=== PATIENT | female | born 1990 | race Caucasian/White ===

== ENCOUNTER → 2017-06-21 | Outpatient (CLI) | payer SELFPAY ==
--- NOTE | 2017-06-21 17:07 | RADIOLOGY REPORT (SQ) ---
EXAM DESCRIPTION: U/S [id number] TRNABD 1GES W/ODOP COMPLETED DATE/TIME: 06/21/2017 4:41 pm REASON FOR STUDY: ENCOUNTER FOR SUPERVISION OF OTHER NORMAL , FIRST TRIMESTER Z34.81 ENCOU NTER FOR SUPRVSN OF NORMAL , FIRST TRIM COMPARISON: None. TECHNIQUE: Transabdominal static and realtime grayscale images acquired of the pelvis. Additional se lected spectral and color Doppler images recorded. All images stored on PACs. bHCG: Not applicable. LIMITATIONS: None. FINDINGS: FETUS: EGA: 13 week 4 day. WILLIAM: 12/23/2017. EFW: Not applicable. FHR: 153 beats per minute. EBONI: Adequate amount. CERVICAL LENGTH: 3.5 cm. Closed. UTERUS: No masses. RIGHT ADNEXA: Ovary not identified. No adnexal free fluid. No adnexal masses. LEFT ADNEXA: Ovary not identified. No adnexal free fluid. No adnexal masses. FREE FLUID: None. OTHER: No other significant finding. IMPRESSION: LIVING INTRAUTERINE . ESTIMATED GESTATIONAL AGE:13 WEEK 4 DAY. Trimester of : Second trimester - 13 weeks 1 day to 27 weeks 6 days. TECHNICAL DOCUMENTATION: JOB ID: [id number] [employer]- All Rights Reserved
== END ==
LOC: RAD 15:41
PROVIDERS: ATTEND Nurse Practitioner Women's Health
DX: Z34.82 Encounter for supervision of other normal pregnancy, second trimester (principal)
CPT/HCPCS: 76801

== ENCOUNTER 2017-06-25 16:46 | Emergency (ER) | payer SELFPAY ==
[2017-06-25 16:55] VITALS: BP 139/72
== END 2017-06-25 20:54 | disposition left against medical advice (07) ==
LOC: ER 16:46
DX: Z53.21 Procedure and treatment not carried out due to patient leaving prior to being seen by health care provider (principal)

== ENCOUNTER 2018-05-24 13:54 | Emergency (ER) | payer MEDICAID ==
[2018-05-24 15:25] LABS: AMORPHOUS SEDIMENT,URINE TRACE /HPF; APPEARANCE,URINE SLIGHTLY-CLOUDY; BILIRUBIN,URINE NEGATIVE (NEGATIVE); COLOR,URINE YELLOW; GLUCOSE, URINE NEGATIVE (NEGATIVE); KETONES,URINE NEGATIVE (NEGATIVE); LEUKOCYTE ESTERASE,URINE NEGATIVE (NEGATIVE); NITRITE,URINE NEGATIVE (NEGATIVE); PROTEIN,URINE NEGATIVE (NEGATIVE); URINE SPECIFIC GRAVITY 1.013; UROBILINOGEN,URINE NEGATIVE mg/dL (<2.0)
[2018-05-24] MEDS ORDERED: NORMAL SALINE 1000 ML 1,000 ML IV ONE (15:41)
[2018-05-24] MEDS ORDERED: KETOROLAC TROMETHAMINE INJ/PF 30 MG/1 ML SDV IV ONE (15:42)
[2018-05-24] MEDS ORDERED: ONDANSETRON HCL INJ/PF 4 MG/2 ML SDV IV ONE (15:42)
--- NOTE | 2018-05-24 15:42 | ER Document Report ---
ED General - General Chief Complaint: Abdominal Pain Stated Complaint: FLANK PAIN Time Seen by Provider: 05/24/18 15:23 Notes: Patient is a 27-year-old female with history of kidney stones and gallstones that presents to the emergency department for chief complaint of abdominal pain and flank pain. Patient states that the symptoms started over the last few days, and singly getting worse. Initially started in the right back, and then came to the right upper quadrant of her abdomen. She is had associated nausea without vomiting. Denies having any fevers, chills, night sweats, chest pain, shortness of breath or difficulty breathing. She currently rates her pain as a 5 out of 10, describes as an aching sensation, in the right upper quadrant that wraps towards the right flank. Denies any other complaints at this time. Past Medical History: Kidney stones Past Surgical History: Denies surgical history Social History: Denies tobacco, alcohol or drug use. Family History: Reviewed and noncontributory for presenting illness Allergies: Reviewed, see documented allergy list. REVIEW OF SYSTEMS: Other than noted above, the 12 point review of systems was reviewed with the patient and were negative, all pertinent findings are included in the HPI. PHYSICAL EXAMINATION: Vital signs reviewed, nursing noted reviewed. GENERAL: Well-appearing, well-nourished and in no acute distress. HEAD: Atraumatic, normocephalic. EYES: Eyes appear normal, extraocular movements intact, sclera anicteric, conjunctiva are normal. ENT: nares patent, oropharynx clear without exudates. Moist mucous membranes. NECK: Normal range of motion, supple without lymphadenopathy LUNGS: Breath sounds clear to auscultation bilaterally and equal. No wheezes rales or rhonchi. HEART: Regular rate and rhythm without murmurs ABDOMEN: Soft, mild right upper quadrant and right flank tenderness with palpation, normoactive bowel sounds. No rebound, guarding, or rigidity. No masses appreciated. EXTREMITIES: Nontender, good range of motion, no pitting or edema. NEUROLOGICAL: No focal neurological deficits. Moves all extremities spontaneously Motor and sensory grossly intact on exam. PSYCH: Normal mood, normal affect. SKIN: Warm, Dry, normal turgor, no rashes or lesions noted on exposed skin TRAVEL OUTSIDE OF THE [place] IN LAST 30 DAYS: No - Related Data Allergies/Adverse Reactions: Iodinated Contrast- Oral and IV Dye Allergy (Verified 12/29/18 14:05) Past Medical History - Social History Smoking Status: Never Smoker Family History: Reviewed & Not Pertinent Patient has suicidal ideation: No Patient has homicidal ideation: No Renal/ Medical History: Reports: Hx Kidney Stones. Denies: Hx Peritoneal Dialysis Musculoskeletal Medical History: Reports Hx Musculoskeletal Trauma Psychiatric Medical History: Reports: Hx Anxiety - Immunizations Immunizations up to date: Yes Hx Diphtheria, Pertussis, Tetanus Vaccination: Yes Physical Exam - Vital signs Vitals: Temp Pulse Resp BP Pulse Ox 98.9 F 61 16 114/57 L 99 05/24/18 14:23 05/24/18 14:23 05/24/18 14:23 05/24/18 14:23 05/24/18 14:23 Course - Re-evaluation Re-evalutation: Patient seen and examined vital signs reviewed. Laboratory data and imaging were ordered as appropriate for the patient's presenting symptoms and complaint, with consideration of any critical or life threatening conditions that may be associated with their obtained history and exam as noted above. Patient was treated with IV fluids, Toradol and Zofran Results were reviewed when available and demonstrated hematuria on urinalysis, but blood work was otherwise unremarkable, CT imaging of the abdomen demonstrate that nonobstructing renal stones, no gallstones, or evidence of cholecystitis. The patient was re-evaluated and was improved, still having some mild pain but stable Evaluation was most consistent with renal versus biliary colic, advised follow- up with surgery., Provided prescriptions for [place], and Zofran. Results were discussed with the patient at this point, after careful consideration I feel that that patient can be discharged from the emergency department, the patient was educated treatments and reasons to return to the emergency department based on their presumed diagnosis as noted above, they were advised to followup with a primary care physician in 2-3 days. Patient was agreeable to plan of care. *Note is created using voice recognition software and may contain spelling, syntax or grammatical errors. Laboratory 05/24/18 05/24/18 05/24/18 14:30 16:18 16:18 WBC 6.1 RBC 4.62 Hgb 12.3 Hct 37.7 MCV 82 MCH 26.6 L MCHC 32.6 RDW 16.1 H Plt Count 291 Seg Neutrophils % 66.3 Lymphocytes % 24.5 Monocytes % 7.4 Eosinophils % 1.4 Basophils % 0.4 Absolute Neutrophils 4.0 Absolute Lymphocytes 1.5 Absolute Monocytes 0.5 Absolute Eosinophils 0.1 Absolute Basophils 0.0 Sodium 142.0 Potassium 5.0 Chloride 107 Carbon Dioxide 27 Anion Gap 8 BUN 13 Creatinine 0.73 Est GFR ( Amer) > 60 Est GFR (Non-Af Amer) > 60 Glucose 82 Calcium 10.1 Total Bilirubin 0.3 Direct Bilirubin 0.2 Neonat Total Bilirubin Not Reportable Neonat Direct Bilirubin Not Reportable Neonat Indirect Bili Not Reportable AST 35 ALT 60 H Alkaline Phosphatase 107 Total Protein 7.0 Albumin 4.1 Lipase 122.9 Urine Color YELLOW Urine Appearance SLIGHTLY-CLOUDY Urine pH 7.0 Ur Specific [place] 1.013 Urine Protein NEGATIVE Urine Glucose (UA) NEGATIVE Urine Ketones NEGATIVE Urine Blood MODERATE H Urine Nitrite NEGATIVE Urine Bilirubin NEGATIVE Urine Urobilinogen NEGATIVE Ur Leukocyte Esterase NEGATIVE Urine WBC (Auto) 1 Urine RBC (Auto) 2 Squamous Epi Cells Auto 1 Amorphous Sediment Auto TRACE Urine Mucus (Auto) RARE Urine Ascorbic Acid NEGATIVE Urine HCG, Qual NEGATIVE Limited or Localized CT 05/24/18 15:41 IMPRESSION: 1. Minimal nonobstructive right nephrolithiasis. 2. No acute abdominopelvic abnormality. 05/24/18 17:36 - Vital Signs Vital signs: Temp Pulse Resp BP Pulse Ox 98.9 F 60 16 113/68 100 05/24/18 14:23 05/24/18 17:28 05/24/18 17:28 05/24/18 17:28 05/24/18 17:28 - Laboratory Result Diagrams: 05/24/18 16:18 05/24/18 16:18 Laboratory results interpreted by me: 05/24/18 05/24/18 05/24/18 14:30 16:18 16:18 MCH 26.6 L RDW 16.1 H ALT 60 H Urine Blood MODERATE H Discharge - Discharge Clinical Impression: Biliary colic Abdominal pain Qualifiers: Abdominal location: unspecified location Qualified Code(s): R10.9 - Unspecified abdominal pain Condition: Stable Disposition: HOME, SELF-CARE Instructions: Abdominal Pain ([facility]) Additional Instructions: Please return to the emergency department if you have any worsening, or concern of your symptoms. Please return to the emergency department if you develop chest pain, difficulty breathing, severe abdominal pain, or ongoing vomiting. Please follow-up with your primary care physician in 2-3 days and any other recommended physicians. If prescribed, take all medications as directed. If you have any questions or concerns do not hesitate to return the emergency department for evaluation. Please follow-up with the surgeon provided, as you may need further evaluation, possible HIDA scan, for biliary colic. Your blood work today did not reveal evidence of acute gallbladder infection, but sometimes people need her gallbladder taken out before it becomes that bad. Prescriptions: Hydrocodone/Acetaminophen [[place] 5-325 mg Tablet] 1 tab PO Q8H PRN #12 tablet PRN Reason: abdominal pain Ondansetron [Zofran Odt 4 mg Tablet] 1 tab PO Q8H PRN #15 tab.rapdis PRN Reason: For Nausea/Vomiting Forms: Return to Work Referrals: BEE RIVERS MD [ACTIVE STAFF] - Follow up in 3-5 days
[2018-05-24 16:41] LABS: ABSOLUTE EOSINOPHILS # (AUTO) 0.1 10^3/uL (0.0-0.6); ABSOLUTE LYMPHOCYTES (AUTO) 1.5 10^3/uL (0.5-4.7); ABSOLUTE MONOCYTES (AUTO) 0.5 10^3/uL (0.1-1.4); BASOPHILS % (AUTO) 0.4 % (0-2); EOSINOPHILS % (AUTO) 1.4 % (0-6); HEMATOCRIT 37.7 % (36.0-47.0); HEMOGLOBIN 12.3 g/dL (12.0-15.5); LYMPHOCYTES % (AUTO) 24.5 % (13-45); MEAN CORPUSCULAR HEMOGLOBIN 26.6 pg (27.0-33.4); MEAN CORPUSCULAR HGB CONC 32.6 g/dL (32.0-36.0); MEAN CORPUSCULAR VOLUME 82 fl (80-97); MONOCYTES % (AUTO) 7.4 % (3-13); PLATELET COUNT 291 10^3/uL (150-450); RED BLOOD COUNT 4.62 10^6/uL (3.72-5.28); RED CELL DISTRIBUTION WIDTH 16.1 % (11.5-14.0); SEGMENTED NEUTROPHILS % (AUTO) 66.3 % (42-78); TOTAL CELLS COUNTED % (AUTO) 100 %; WHITE BLOOD COUNT 6.1 10^3/uL (4.0-10.5)
--- NOTE | 2018-05-24 16:47 | RADIOLOGY REPORT (SQ) ---
EXAM DESCRIPTION: CT LTD RENAL STONE PROTOCOL ON COMPLETED DATE/TIME: 05/24/2018 4:35 pm REASON FOR STUDY: right flank pain, hx kidney stones COMPARISON: None. TECHNIQUE: CT scan of the abdomen and pelvis performed without intravenous or oral contrast. Images reviewed with lung, soft tissue, and bone windows. Reconstructed coronal and sagittal MPR images revi ewed. All images stored on PACS. All CT scanners at this facility use dose modulation, iterative reconstruction, and/or weight based d osing when appropriate to reduce radiation dose to as low as reasonably achievable (ALARA). [facility]: Dose Right [facility]: CareDose [facility]: Dose Right [facility]: Teradose 4D [facility]: Smart Mixwit RADIATION DOSE: CT Rad equipment meets quality standard of care and radiation dose reduction techniq ues were employed. CTDIvol: 9.1 mGy. DLP: 491 mGy-cm.mGy. LIMITATIONS: None. FINDINGS: LOWER CHEST: No significant findings. No nodules or infiltrates. NON-CONTRASTED LIVER, SPLEEN, ADRENALS: Evaluation limited by lack of IV contrast. No identified sign ificant masses. PANCREAS: No masses. No peripancreatic inflammatory changes. GALLBLADDER: Contracted. Probable gallstones. No duct dilatation. RIGHT KIDNEY AND URETER: Punctate nonobstructive midpole calculus. No hydronephrosis. No ureteral s tones. No gross mass. LEFT KIDNEY AND URETER: No solid masses. No significant calcification. No hydronephrosis or hydrouret er. AORTA AND RETROPERITONEUM: No aneurysm. No retroperitoneal masses or adenopathy. BOWEL AND PERITONEAL CAVITY: No obvious masses or inflammatory changes. No free fluid. APPENDIX: Normal. PELVIS, BLADDER, AND ABDOMINAL WALL:No abnormal masses. No free fluid. Bladder normal. BONES: No significant findings. OTHER: No other significant finding. IMPRESSION: 1. Minimal nonobstructive right nephrolithiasis. 2. No acute abdominopelvic abnormalit y. TECHNICAL DOCUMENTATION: JOB ID: [id number] Quality ID # [id number]: Final reports with documentation of one or more dose reduction techniques (e.g., Au tomated exposure control, adjustment of the mA and/or kV according to patient size, use of iterative reconstruction technique) 2010 [employer]- All Rights Reserved Reading location - IP/workstation name: [email or web address]
[2018-05-24 16:58] LABS: ALANINE AMINOTRANSFERASE 60 U/L (9-52); ALBUMIN 4.1 g/dL (3.5-5.0); ALKALINE PHOSPHATASE 107 U/L (38-126); ANION GAP 8 (5-19); ASPARTATE AMINO TRANSFERASE 35 U/L (14-36); BILIRUBIN,DIRECT 0.2 mg/dL (0.0-0.4); BILIRUBIN,TOTAL 0.3 mg/dL (0.2-1.3); BLOOD UREA NITROGEN 13 mg/dL (7-20); CALCIUM 10.1 mg/dL (8.4-10.2); CARBON DIOXIDE 27 mmol/L (22-30); CHLORIDE 107 mmol/L (98-107); GLUCOSE 82 mg/dL (75-110); LIPASE 122.9 U/L (23-300)
[2018-05-24 17:28] VITALS: BP 113/68
== END 2018-05-24 17:34 | disposition home or self-care (01) ==
LOC: ER 13:54
DX: K80.50 Calculus of bile duct without cholangitis or cholecystitis without obstruction (principal); R10.9 Unspecified abdominal pain; R10.11 Right upper quadrant pain; R11.0 Nausea
CPT/HCPCS: 99284; 96361; 96374; 96375; 36415; 83690; 85025; 81025; 80053; 81001; 76380; J1885; J2405; J7030

== ENCOUNTER 2019-01-18 19:34 | Emergency (ER) | payer MEDICAID ==
[2019-01-18] MEDS ORDERED: NORMAL SALINE 1000 ML 1,000 ML IV ONE (20:17)
[2019-01-18] MEDS ORDERED: MAGNESIUM CITRATE 296 ML BOTTLE PO ONE (20:20)
[2019-01-18] MEDS ORDERED: ONDANSETRON HCL INJ/PF 4 MG/2 ML SDV IV ONE (20:20)
--- NOTE | 2019-01-18 20:22 | ER Document Report ---
ED Medical Screen (RME) - General Chief Complaint: Chest Pain Stated Complaint: CONSTIPATION,CHEST PAIN Time Seen by Provider: 01/18/19 20:11 Mode of Arrival: Ambulatory Information source: Patient Notes: 28-year-old female presented to ED for complaint of severe abdominal pain and no bowel movement in 9 days. She states she stopped her vitamins because she is 7 weeks . She states she has a history of Crohn's and she is worried that she has an obstruction. She is 4 para 2. I did go and speak with Dr. Shaikh. She stated to give the patient Zofran get a KUB to find out how constipated she is give her fluids and we will give next citrate. These were all ordered. Patient is alert oriented respirations regular and unlabored speaking in full sentences she does walk with even steady gait. I have greeted and performed a rapid initial assessment of this patient. A comprehensive ED assessment and evaluation of the patient, analysis of test results and completion of medical decision making process will be conducted by an additional ED providers. TRAVEL OUTSIDE OF THE [place] IN LAST 30 DAYS: No - Related Data Allergies/Adverse Reactions: Iodinated Contrast Media [Iodinated Contrast- Oral and IV Dye] Allergy (Verified 05/24/18 14:05) Past Medical History - Social History Frequency of alcohol use: None Drug Abuse: None Renal/ Medical History: Reports: Hx Kidney Stones. Denies: Hx Peritoneal Dialysis Musculoskeltal Medical History: Reports Hx Musculoskeletal Trauma Psychiatric Medical History: Reports: Hx Anxiety - Immunizations Immunizations up to date: Yes Hx Diphtheria, Pertussis, Tetanus Vaccination: Yes Physical Exam - Vital signs Vitals: Temp Pulse Resp BP Pulse Ox 98.1 F 79 18 131/70 H 100 01/18/19 19:54 01/18/19 19:54 01/18/19 19:54 01/18/19 19:54 01/18/19 19:54 Course - Vital Signs Vital signs: Temp Pulse Resp BP Pulse Ox 98.1 F 79 18 131/70 H 100 01/18/19 19:54 01/18/19 19:54 01/18/19 19:54 01/18/19 19:54 01/18/19 19:54
[2019-01-18 20:35] LABS: ABSOLUTE LYMPHOCYTES (AUTO) 1.6 10^3/uL (0.5-4.7); ABSOLUTE MONOCYTES (AUTO) 0.5 10^3/uL (0.1-1.4); ABSOLUTE NEUT (AUTO) 4.9 10^3/uL (1.7-8.2); BASOPHILS % (AUTO) 0.4 % (0-2); EOSINOPHILS % (AUTO) 0.7 % (0-6); HEMATOCRIT 36.2 % (36.0-47.0); LYMPHOCYTES % (AUTO) 22.5 % (13-45); MEAN CORPUSCULAR HEMOGLOBIN 28.1 pg (27.0-33.4); MEAN CORPUSCULAR HGB CONC 33.2 g/dL (32.0-36.0); MEAN CORPUSCULAR VOLUME 85 fl (80-97); MONOCYTES % (AUTO) 6.8 % (3-13); PLATELET COUNT 216 10^3/uL (150-450); RED BLOOD COUNT 4.28 10^6/uL (3.72-5.28); RED CELL DISTRIBUTION WIDTH 16.5 % (11.5-14.0); SEGMENTED NEUTROPHILS % (AUTO) 69.6 % (42-78); TOTAL CELLS COUNTED % (AUTO) 100 %; WHITE BLOOD COUNT 7.1 10^3/uL (4.0-10.5)
[2019-01-18 21:01] LABS: ALBUMIN 3.9 g/dL (3.5-5.0); ALKALINE PHOSPHATASE 65 U/L (38-126); ANION GAP 7 (5-19); ASPARTATE AMINO TRANSFERASE 38 U/L (14-36); BILIRUBIN,DIRECT 0.3 mg/dL (0.0-0.4); BILIRUBIN,TOTAL 0.3 mg/dL (0.2-1.3); BLOOD UREA NITROGEN 8 mg/dL (7-20); CALCIUM 10.4 mg/dL (8.4-10.2); CARBON DIOXIDE 24 mmol/L (22-30); CHLORIDE 107 mmol/L (98-107); GLUCOSE 83 mg/dL (75-110); POTASSIUM 3.9 mmol/L (3.6-5.0); TOTAL PROTEIN 6.7 g/dL (6.3-8.2)
--- NOTE | 2019-01-18 21:21 | RADIOLOGY REPORT (SQ) ---
EXAM DESCRIPTION: XR ABDOMEN 1 VIEW (KUB) COMPLETED DATE/TME: 01/18/2019 20:20 CLINICAL HISTORY: 28 years Female ,no stool 9 days 7 weeks preg hx of Crohn's COMPARISON: None. TECHNIQUE: Single view of the abdomen was provided.. FINDINGS:Upper abdomen incompletely included on the image. No dilated loops of bowel to suggest obstruction. No abnormal calcifications noted. Moderate amount of fecal material in the colon. IMPRESSION: No acute plain film abnormality is identified.
[2019-01-18 21:27] LABS: APPEARANCE,URINE SLIGHTLY-CLOUDY; BILIRUBIN,URINE NEGATIVE (NEGATIVE); COLOR,URINE YELLOW; GLUCOSE, URINE NEGATIVE (NEGATIVE); KETONES,URINE NEGATIVE (NEGATIVE); LEUKOCYTE ESTERASE,URINE NEGATIVE (NEGATIVE); NITRITE,URINE NEGATIVE (NEGATIVE); PROTEIN,URINE NEGATIVE (NEGATIVE); URINE SPECIFIC GRAVITY 1.021; UROBILINOGEN,URINE NEGATIVE mg/dL (<2.0)
--- NOTE | 2019-01-18 22:37 | ER Document Report ---
ED General - General Chief Complaint: Chest Pain Stated Complaint: CONSTIPATION,CHEST PAIN Time Seen by Provider: 01/18/19 20:11 Primary Care Provider: PARVEEN BUCHANAN PA-C [Primary Care Provider] - Follow up as needed Mode of Arrival: Ambulatory Notes: Patient is a 28-year-old female with a history of Crohn's who presents to the emergency department with a chief complaint of lower abdominal pain. Patient reports she has not had a bowel movement in the past week. Patient reports she does have a history of constipation. Patient states she has not taken anything at home for constipation. Patient reports she is 7 weeks but currently not having any vaginal bleeding or discharge. Patient reports she is also having chest pressure without chest pain or shortness of breath. Patient reports that she feels like the pressure from her abdomen is pushing up to the upper abdomen and chest. She is unsure if this is related. Patient reports this started 4 days ago. Patient denies any cardiac history. Patient states she has not been on any long car rides and does not have a history of blood clots. TRAVEL OUTSIDE OF THE [place] IN LAST 30 DAYS: No - Related Data Allergies/Adverse Reactions: Iodinated Contrast Media [Iodinated Contrast- Oral and IV Dye] Allergy (Verified 05/24/18 14:05) Past Medical History - General Information source: Patient - Social History Smoking Status: Never Smoker Frequency of alcohol use: None Drug Abuse: None Lives with: Family Family History: Reviewed & Not Pertinent Patient has suicidal ideation: No Patient has homicidal ideation: No - Past Medical History Cardiac Medical History: Reports: None Pulmonary Medical History: Reports: None EENT Medical History: Reports: None Neurological Medical History: Reports: None Endocrine Medical History: Reports: None Renal/ Medical History: Reports: Hx Kidney Stones. Denies: Hx Peritoneal Dialysis Malignancy Medical History: Reports: None GI Medical History: Reports: None Musculoskeletal Medical History: Reports Hx Musculoskeletal Trauma Skin Medical History: Reports None Psychiatric Medical History: Reports: Hx Anxiety Traumatic Medical History: Reports: None Infectious Medical History: Reports: None Surgical Hx: Negative - Immunizations Immunizations up to date: Yes Hx Diphtheria, Pertussis, Tetanus Vaccination: Yes Review of Systems - Review of Systems Constitutional: No symptoms reported EENT: No symptoms reported Cardiovascular: See HPI Respiratory: No symptoms reported Gastrointestinal: See HPI Genitourinary: No symptoms reported Female Genitourinary: No symptoms reported Musculoskeletal: No symptoms reported Skin: No symptoms reported Hematologic/Lymphatic: No symptoms reported Neurological/Psychological: No symptoms reported Physical Exam - Vital signs Vitals: Temp Pulse Resp BP Pulse Ox 98.1 F 79 18 131/70 H 100 01/18/19 19:54 01/18/19 19:54 01/18/19 19:54 01/18/19 19:54 01/18/19 19:54 Interpretation: Normal - Notes Notes: GENERAL: Well-appearing, well-nourished and in no acute distress. HEAD: Atraumatic, normocephalic. EYES: Pupils equal round and reactive to light, extraocular movements intact, sclera anicteric, conjunctiva are normal. ENT: Nares patent, oropharynx clear without exudates. Moist mucous membranes. NECK: Normal range of motion, supple without lymphadenopathy or JVD. LUNGS: Breath sounds clear to auscultation bilaterally and equal. No wheezes rales or rhonchi. HEART: Regular rate and rhythm without murmurs, rubs or gallops. ABDOMEN: Soft, nontender, hypoactive bowel sounds. No guarding, no rebound. No masses appreciated. BACK: No cervical, thoracic, lumbar midline tenderness. No saddle anesthesia, normal distal neurovascular exam. GENITOURINARY: Deferred. EXTREMITIES: Normal range of motion, no pitting or edema. No clubbing or cyanosis. NEUROLOGICAL: Cranial nerves II through XII grossly intact. Normal speech, normal gait. PSYCH: Normal mood, normal affect. SKIN: Warm, Dry, normal turgor, no rashes or lesions noted. Course - Re-evaluation Re-evalutation: 01/18/19 22:35 Patient's physical assessment is benign. Patient is not tachycardic or hypertensive. My suspicion for blood clot is low, patient is PERC negative. I do believe the patient's symptoms are related to her constipation and feeling of fullness. Patient did have a moderate amount of stool in the colon. Patient did finish 1 bottle of mag citrate 30 minutes ago and states she has not had any relief. Patient denies acid reflux or recent belching. I have added on a troponin. I did offer the patient a enema. Patient states she would like to wait at this time to see if she has any results from the mag citrate. 01/18/19 23:19 Troponin is still pending. I did reevaluate the patient who complains of continued lower abdominal pain specifically in the left lower quadrant. This is consistent with her x-ray as it did show moderate amount of stool in the colon. Patient states she has not had any relief or results from the mag citrate. Patient reports she is belching but has not passed gas or had a bowel movement. I did offer an enema. Patient states she would like to start out with a glycerin suppository first. 23:21 Troponin is negative. We will continue with a glycerin suppository. 01/19/19 00:34 Patient did self administer her own glycerin suppository. Patient states she continues to have the left lower quadrant pain and feels the stool but has had no relief of gas. I did offer the patient an enema while she is here in the emergency department. Patient states that she would feel more comfortable in her own home. I will prescribe her a fleets enema. Patient reports she has taken this at home In the past. Patient placed on strict return precautions. - Vital Signs Vital signs: Temp Pulse Resp BP Pulse Ox 98.1 F 79 18 131/70 H 100 01/18/19 19:54 01/18/19 19:54 01/18/19 19:54 01/18/19 19:54 01/18/19 19:54 - Laboratory Result Diagrams: 01/18/19 20:25 01/18/19 20:25 Laboratory results interpreted by me: 01/18/19 01/18/19 20:25 20:25 RDW 16.5 H Calcium 10.4 H AST 38 H Beta HCG, Quant 410646.00 H 01/18/19 22:37 Laboratory 01/18/19 01/18/19 01/18/19 20:25 20:25 21:15 WBC 7.1 RBC 4.28 Hgb 12.0 Hct 36.2 MCV 85 MCH 28.1 MCHC 33.2 RDW 16.5 H Plt Count 216 Lymph % (Auto) 22.5 [place] % (Auto) 6.8 Eos % (Auto) 0.7 Baso % (Auto) 0.4 Absolute Neuts (auto) 4.9 Absolute Lymphs (auto) 1.6 Absolute Monos (auto) 0.5 Absolute Eos (auto) 0.0 Absolute Basos (auto) 0.0 Seg Neutrophils % 69.6 Sodium 138.1 Potassium 3.9 Chloride 107 Carbon Dioxide 24 Anion Gap 7 BUN 8 Creatinine 0.63 Est GFR ( Amer) > 60 Est GFR (MDRD) Non-Af > 60 Glucose 83 Calcium 10.4 H Total Bilirubin 0.3 Direct Bilirubin 0.3 Neonat Total Bilirubin Not Reportable Neonat Direct Bilirubin Not Reportable Neonat Indirect Bili Not Reportable AST 38 H ALT 23 Alkaline Phosphatase 65 Total Protein 6.7 Albumin 3.9 Lipase 85.5 Beta HCG, Quant 727478.00 H Total Beta HCG POSITIVE Urine Color YELLOW Urine Appearance SLIGHTLY-CLOUDY Urine pH 6.0 Ur Specific [place] 1.021 Urine Protein NEGATIVE Urine Glucose (UA) NEGATIVE Urine Ketones NEGATIVE Urine Blood NEGATIVE Urine Nitrite NEGATIVE Urine Bilirubin NEGATIVE Urine Urobilinogen NEGATIVE Ur Leukocyte Esterase NEGATIVE Urine WBC (Auto) 3 Urine RBC (Auto) 1 Squamous Epi Cells Auto 4 Urine Mucus (Auto) RARE Urine Ascorbic Acid NEGATIVE - Diagnostic Test Radiology reviewed: Reports reviewed Radiology results interpreted by me: 01/18/19 22:32 KUB X-Ray 01/18/19 20:20 IMPRESSION: No acute plain film abnormality is identified. - EKG Interpretation by Me Additional EKG results interpreted by me: 01/19/19 00:16 Patient's EKG shows a normal sinus rhythm with a heart rate of 79. Patient's [place] interval is 152, QT 360 and QTc is 422. Patient has a normal axis deviation with no ST segment changes in consecutive leads. There is no previous EKG to compare. Discharge - Discharge Clinical Impression: Constipation Qualifiers: Constipation type: unspecified constipation type Qualified Code(s): K59.00 - Constipation, unspecified Abdominal pain Qualifiers: Abdominal location: generalized Qualified Code(s): R10.84 - Generalized abdominal pain Chest pain Qualifiers: Chest pain type: unspecified Qualified Code(s): R07.9 - Chest pain, unspecified Condition: Stable Disposition: HOME, SELF-CARE Additional Instructions: Today you are seen in the emergency department for abdominal pain. Your cardiac work-up was negative. I do believe your symptoms are associated with the constipation. You did have a moderate amount of stool in the colon. We have attempted to give you a glycerin suppository as well as mag citrate without relief. An enema was offered to you here the report that you would feel much more comfortable at home. Please take the fleets enema as directed. If you are taking a vitamin with iron please stop as iron can cause constipation. Please continue adequately hydrating herself with oral liquids. Medications that are [id number] for constipation include Metamucil and MiraLAX that are taken with at least 8 ounces of water as well as milk of magnesia. Please increase fluid, fiber and fresh fruit intake. Please return to the emergency department if you have any worsening signs or symptoms or if you are unable to have a bowel movement. Abdominal Pain There are many causes of abdominal pain. Pain can mean a serious problem requiring surgery (such as appendicitis). It can also be an innocent problem that goes away on its own (such as a viral infection). Often, time must pass to determine the cause of pain. The physician does not feel that hospitalization is necessary, at present. Things may change within the next 24 hours. Call the doctor or come back for re- examination if any problems occur, such as: (1) Pain that becomes more severe, steady, or becomes concentrated in one specific area. Also, pain that is more severe with movement or coughing. (2) Vomiting that persists or becomes more frequent. (3) Blood in the vomitus, urine, or bowel movements. Blood in the stool may have a tarry or black appearance. (4) Shaking chills or fever greater than 100 degrees F. (5) The abdomen becomes more distended or swollen. (6) Bowel movements cease. (7) Failure to improve as expected. Forms: Return to Work Referrals: PARVEEN BUCHANAN PA-C [Primary Care Provider] - Follow up as needed
[2019-01-18] MEDS ORDERED: GLYCERIN (ADULT) SUPP.RECT PR ONE ×2 (23:19→23:37)
--- NOTE | 2019-01-19 00:17 | EKG REPORT ---
SEVERITY:- NORMAL ECG - SINUS RHYTHM : Confirmed by: Mile Winn MD 19-Jan-2019 00:15:53
[2019-01-19] MEDS ORDERED: NA PHOS,M-B/NA PHOS,DI-BA (ADULT) 133 ML ENEMA PR ONE (00:40)
[2019-01-19 00:52] VITALS: BP 111/57
== END 2019-01-19 00:52 | disposition home or self-care (01) ==
LOC: ER 19:34
DX: O26.91 Pregnancy related conditions, unspecified, first trimester (principal); K59.00 Constipation, unspecified; R10.84 Generalized abdominal pain; R07.9 Chest pain, unspecified; Z87.442 Personal history of urinary calculi
CPT/HCPCS: 93005; 99284; 96361; 96374; 36415; 84702; 83690; 85025; 80053; 81001; 84484; 74018; 93010; J3490 ×3; J2405; J7030

== ENCOUNTER 2019-02-20 16:48 | Emergency (ER) | payer MEDICAID ==
[2019-02-20 16:57] VITALS: BP 136/82
[2019-02-20] MEDS ORDERED: NORMAL SALINE 1000 ML 1,000 ML IV ONE (17:55)
[2019-02-20] MEDS ORDERED: ONDANSETRON HCL INJ/PF 4 MG/2 ML SDV IV ONE (17:56)
--- NOTE | 2019-02-20 18:10 | ER Document Report ---
ED Medical Screen (RME) - General Chief Complaint: Sore Throat Stated Complaint: SORE THROAT Time Seen by Provider: 02/20/19 17:48 Primary Care Provider: PARVEEN BUCHANAN PA-C [Primary Care Provider] - Follow up as needed Notes: HPI: 28-year-old female with the listed past medical history who is and approximately 12 weeks 4 days here for a several episodes of nonbloody nonbilious vomiting and several episodes of mucousy diarrhea for the last 2 days. Positive sick contacts at work with URI symptoms. She has also had a sore throat, cough, and some shortness of breath only when she gets in a coughi ng spell. Denies fevers or chest pain. No abdominal pain, vaginal bleeding or discharge. No UTI symptoms. She has had a confirmed IUP. She follows with the health department. She has not taken anything other than vitamins and Tylenol for her symptoms. She had no prior complications with her previous pregnancies. No recent antibiotics. No changes in medication or diet otherwise. No other complaints at this time. ROS neg to include 10 systems, unless mentioned in the hpi. PE:>>>> PHYSICAL_EXAM: GENERAL_APPEARANCE: well_nourished, alert, cooperative, no_acute_distress, no_obvious_discomfort. pleasant, young white female, smiling, speaking in full sentences, in no sign of pain or resp distress, no one is with her VITALS: reviewed, see vital signs table. HEAD: no_swelling\tenderness on the head. normocephalic. atraumatic. no hassan signs. no raccoons eyes. EYES: PERRL, EOMI, conjunctiva_clear. NOSE: no_nasal_discharge. MOUTH: (-)decreased moisture. THROAT: mild_tonsilar_inflammation, no exudate/hypertrophy, no_airway_obstruction. no_lymphadenopathy NECK: supple, no_neck_tenderness, full rom. full strength. no meningeal signs. BACK: no_back_tenderness. CHEST_WALL: no_chest_tenderness. no overlying skin changes LUNGS: no_wheezing, ctab (-)accessory muscle use, good air exchange bilateral. HEART: normal_rate, normal_rhythm, ABDOMEN: normal_BS, soft, no_abd_tenderness, uterus not palpated on exam, (- )guarding, (-)rebound, no distension or peritoneal signs. no cva ttp EXTREMITIES: strength 5/5 in all_extremities, good pulses in all_extremities, no_swelling\tenderness in the extremities, no_edema. full rom. normal gait. good pulses. brisk cap refill. good hand appeals coordinator. NEURO: motor and sensation intact, SKIN: warm, dry, good_color, no_rash. MENTAL_STATUS: speech_clear, oriented_X_3, normal_affect, responds_appropriately to questions. MDM: I have ordered labs an initial work-up and patient will be transferred to the main ER for further work-up. I have greeted and performed a rapid initial assessment of this patient. A comprehensive ED assessment and evaluation of the patient, analysis of test results and completion of the medical decision making process will be conducted by additional ED providers. I have specifically instructed the patient or family members with the patient to immediately return to any nursing staff should anything change in the patient's condition or with their chief complaint. Documentation achieved through voice recording which may lead to some occasional accidental typographical errors. Extensive efforts have been made to proof read documentation to make sure these are as few as possible Category Date Time Status Heart Tones (ED) NOW Care 02/20/19 17:56 Ordered CBC WITH DIFF [HEME] Stat Lab 02/20/19 17:53 Ordered COMPREHENSIVE METABOLIC PANEL [CHEM] Stat Lab 02/20/19 17:53 Ordered CREATINE KINASE [CHEM] Stat Lab 02/20/19 17:53 Ordered HCG QUANTITATIVE [CHEM] Stat Lab 02/20/19 17:55 Ordered LIPASE [CHEM] Stat Lab 02/20/19 17:54 Ordered MAGNESIUM [CHEM] Stat Lab 02/20/19 17:55 Ordered Rapid Strep [DIRECT STREP,RAPID] [MO] Stat Lab 02/20/19 16:58 Completed THROAT CULTURE [MC] Routine Lab 02/20/19 16:58 Received URINALYSIS [URIN] Stat Lab 02/20/19 17:54 Uncollected Normal Saline 1000 ml [NaCl 0.9% 1000 ml IV Soln] 1,000 Med 02/20/19 17:55 Ordered ml IV BOLUS Ondansetron HCl/Pf [Zofran Inj/Pf 4 mg/2 ml Sdv] Med 02/20/19 17:56 Once 4 mg IV NOW ONE TRAVEL OUTSIDE OF THE [place] IN LAST 30 DAYS: No - Related Data Allergies/Adverse Reactions: Iodinated Contrast Media [Iodinated Contrast- Oral and IV Dye] Allergy (Verified 05/24/18 14:05) Past Medical History - Social History Frequency of alcohol use: None Drug Abuse: None Renal/ Medical History: Reports: Hx Kidney Stones. Denies: Hx Peritoneal Dialysis Musculoskeltal Medical History: Reports Hx Musculoskeletal Trauma Psychiatric Medical History: Reports: Hx Anxiety - Immunizations Immunizations up to date: Yes Hx Diphtheria, Pertussis, Tetanus Vaccination: Yes Physical Exam - Vital signs Vitals: Temp Pulse Resp BP Pulse Ox 98.5 F 90 22 H 136/82 H 98 02/20/19 16:55 02/20/19 16:55 02/20/19 16:55 02/20/19 16:55 02/20/19 16:55 Course - Vital Signs Vital signs: Temp Pulse Resp BP Pulse Ox 98.5 F 90 22 H 136/82 H 98 02/20/19 16:55 02/20/19 16:55 02/20/19 16:55 02/20/19 16:55 02/20/19 16:55 Doctor's Discharge - Discharge Referrals: PARVEEN BUCHANAN PA-C [Primary Care Provider] - Follow up as needed
[2019-02-20 19:56] LABS: APPEARANCE,URINE SLIGHTLY-CLOUDY; BILIRUBIN,URINE NEGATIVE (NEGATIVE); COLOR,URINE YELLOW; GLUCOSE, URINE NEGATIVE (NEGATIVE); KETONES,URINE 20 mg/dL (NEGATIVE); LEUKOCYTE ESTERASE,URINE NEGATIVE (NEGATIVE); NITRITE,URINE NEGATIVE (NEGATIVE); PROTEIN,URINE NEGATIVE (NEGATIVE); UROBILINOGEN,URINE NEGATIVE mg/dL (<2.0)
[2019-02-20 19:57] LABS: ABSOLUTE EOSINOPHILS # (AUTO) 0.1 10^3/uL (0.0-0.6); ABSOLUTE LYMPHOCYTES (AUTO) 1.2 10^3/uL (0.5-4.7); ABSOLUTE MONOCYTES (AUTO) 0.4 10^3/uL (0.1-1.4); BASOPHILS % (AUTO) 0.6 % (0-2); EOSINOPHILS % (AUTO) 1.2 % (0-6); HEMATOCRIT 36.9 % (36.0-47.0); HEMOGLOBIN 12.4 g/dL (12.0-15.5); LYMPHOCYTES % (AUTO) 18.3 % (13-45); MEAN CORPUSCULAR HGB CONC 33.6 g/dL (32.0-36.0); MEAN CORPUSCULAR VOLUME 86 fl (80-97); MONOCYTES % (AUTO) 6.2 % (3-13); PLATELET COUNT 212 10^3/uL (150-450); RED BLOOD COUNT 4.28 10^6/uL (3.72-5.28); RED CELL DISTRIBUTION WIDTH 15.2 % (11.5-14.0); SEGMENTED NEUTROPHILS % (AUTO) 73.7 % (42-78); TOTAL CELLS COUNTED % (AUTO) 100 %; WHITE BLOOD COUNT 6.8 10^3/uL (4.0-10.5)
[2019-02-20 20:15] LABS: ALBUMIN 3.6 g/dL (3.5-5.0); ALKALINE PHOSPHATASE 70 U/L (38-126); ANION GAP 7 (5-19); ASPARTATE AMINO TRANSFERASE 28 U/L (14-36); BILIRUBIN,DIRECT 0.2 mg/dL (0.0-0.4); BILIRUBIN,TOTAL 0.3 mg/dL (0.2-1.3); BLOOD UREA NITROGEN 6 mg/dL (7-20); CALCIUM 10.4 mg/dL (8.4-10.2); CARBON DIOXIDE 23 mmol/L (22-30); CHLORIDE 108 mmol/L (98-107); GLUCOSE 75 mg/dL (75-110); POTASSIUM 4.3 mmol/L (3.6-5.0); TOTAL PROTEIN 6.7 g/dL (6.3-8.2)
[2019-02-20 20:16] LABS: CREATINE KINASE 24 U/L (30-135)
--- NOTE | 2019-02-20 20:36 | ER Document Report ---
ED General - General Chief Complaint: Sore Throat Stated Complaint: SORE THROAT Time Seen by Provider: 02/20/19 17:48 Primary Care Provider: PARVEEN BUCHANAN PA-C [Primary Care Provider] - Follow up as needed TRAVEL OUTSIDE OF THE [place] IN LAST 30 DAYS: No - HPI Notes: This is a 28-year-old female who presents today with a complaint of generalized body aches, sinus congestion, nonproductive cough, postnasal drip, sneezing, rhinorrhea, sore throat for the past 3 days. She also has had some slight nausea, vomiting some diarrhea. She denies any abdominal pain. She is 12 weeks , G2, P1. She denies any pelvic pain, vaginal bleeding or discharge. She describes her symptoms as moderate. There are no obvious aggravating or relieving factors. She denies any sick contacts. - Related Data Allergies/Adverse Reactions: Iodinated Contrast Media [Iodinated Contrast- Oral and IV Dye] Allergy (Verified 05/24/18 14:05) Past Medical History - Social History Smoking Status: Never Smoker Frequency of alcohol use: None Drug Abuse: None Family History: Reviewed & Not Pertinent Patient has suicidal ideation: No Patient has homicidal ideation: No Renal/ Medical History: Reports: Hx Kidney Stones. Denies: Hx Peritoneal Dialysis Musculoskeletal Medical History: Reports Hx Musculoskeletal Trauma Psychiatric Medical History: Reports: Hx Anxiety - Immunizations Immunizations up to date: Yes Hx Diphtheria, Pertussis, Tetanus Vaccination: Yes Review of Systems - Review of Systems Constitutional: denies: Fever EENT: Nose congestion, Sinus pressure, Sinus discharge Cardiovascular: denies: Chest pain, Palpitations Respiratory: Cough Gastrointestinal: Diarrhea, Nausea. denies: Abdominal pain Genitourinary: denies: Frequency, Flank pain Female Genitourinary: . denies: Vaginal discharge, Vaginal bleeding -: Yes All other systems reviewed and negative - Talk Physical Exam - Vital signs Vitals: Temp Pulse Resp BP Pulse Ox 98.5 F 90 22 H 136/82 H 98 02/20/19 16:55 02/20/19 16:55 02/20/19 16:55 02/20/19 16:55 02/20/19 16:55 - General General appearance: Appears well, Alert - HEENT Head: Normocephalic, Atraumatic Eyes: Normal Pupils: PERRL Sinus: Tenderness - There is paranasal sinus tenderness. - Respiratory Respiratory status: No respiratory distress Chest status: Nontender Breath sounds: Normal Chest palpation: Normal - Cardiovascular Rhythm: Regular Heart sounds: Normal auscultation Murmur: No - Abdominal Inspection: Normal Distension: No distension Bowel sounds: Normal Tenderness: Nontender Organomegaly: No organomegaly - Neurological Neuro grossly intact: Yes Cognition: Normal Orientation: AAOx4 Milagro Coma Scale Eye Opening: Spontaneous Crawford Coma Scale Verbal: Oriented Crawford Coma Scale Motor: Obeys Commands Crawford Coma Scale Total: 15 Speech: Normal Motor strength normal: LUE, RUE, LLE, RLE Sensory: Normal - Psychological Associated symptoms: Normal affect, Normal mood Course - Re-evaluation Re-evalutation: 02/20/19 20:35 Differential diagnosis includes sinusitis versus allergic rhinitis versus pharyngitis versus bronchitis versus gastroenteritis. Will hydrate patient. Will check basic labs. No abdominal complaints. No clinical suspicion for preg sergio related problem. 02/20/19 21:13 Patient reevaluated. Patient is doing well. Labs reviewed and are unremarkable. Will cover with Augmentin for acute bacterial sinusitis. She is stable for discharge. Patient counseled. Follow-up instructions given. - Vital Signs Vital signs: Temp Pulse Resp BP Pulse Ox 98.5 F 90 22 H 136/82 H 98 02/20/19 16:55 02/20/19 16:55 02/20/19 16:55 02/20/19 16:55 02/20/19 16:55 - Laboratory Result Diagrams: 02/20/19 19:30 02/20/19 19:30 Laboratory results interpreted by me: 02/20/19 02/20/19 02/20/19 19:30 19:30 19:30 RDW 15.2 H Chloride 108 H BUN 6 L Calcium 10.4 H Creatine Kinase 24 L Beta HCG, Quant 67413.00 H Urine Ketones 02/20/19 19:30 RDW Chloride BUN Calcium Creatine Kinase Beta HCG, Quant Urine Ketones 20 H Discharge - Discharge Clinical Impression: Acute bacterial sinusitis, Gastroenteritis Pharyngitis Qualifiers: Pharyngitis/tonsillitis etiology: unspecified etiology Qualified Code(s): J02.9 - Acute pharyngitis, unspecified Condition: Good Disposition: HOME, SELF-CARE Instructions: Gastroenteritis (adult) ([facility]), Sore Throat ([facility]), Sinusitis ([facility]) Additional Instructions: Return if worse or concerns. Prescriptions: Amox Tr/Potassium Clavulanate [Augmentin 875-125 mg Tablet] 1 tab PO BID #20 tablet Promethazine HCl [Phenergan 25 mg Tablet] 1 - 2 tab PO Q6H PRN #15 tablet PRN Reason: Referrals: PARVEEN BUCHANAN PA-C [Primary Care Provider] - (Call on Saturday for follow-up appointment)
[2019-02-20] MEDS ORDERED: AMOXICILLIN TR/POT CLAVULANATE 500-125 MG TAB PO ONE (21:12)
== END 2019-02-20 21:47 | disposition home or self-care (01) ==
LOC: ER 16:48
DX: O26.91 Pregnancy related conditions, unspecified, first trimester (principal); J01.90 Acute sinusitis, unspecified; K52.9 Noninfective gastroenteritis and colitis, unspecified; J02.9 Acute pharyngitis, unspecified; M79.10 Myalgia, unspecified site; Z87.442 Personal history of urinary calculi; Z3A.12 12 weeks gestation of pregnancy
CPT/HCPCS: 99283; 96361; 96374; 36415; 87070; 87880; 82550; 84702; 83690; 83735; 85025; 80053; 81001; J3490; J2405; J7030

== ENCOUNTER 2019-05-12 17:15 | Emergency (ER) | payer MEDICAID ==
--- NOTE | 2019-05-12 18:51 | ER Document Report ---
HPI - HPI Time Seen by Provider: 05/12/19 18:38 Pain Level: 1 Notes: 28-year-old female 2 para 1 who is 24 weeks presents to the emergency room for nasal congestion, body aches, headache, reports her eyelids hurt" started yesterday. Patient denied a flu shot this year. Worse with time, nothing makes better. Decreased eating but drinking without issues. 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 Denies fevers, chills, chest pain,palpitations, shortness of breath, dyspnea, nausea, vomiting, diarrhea, abdominal pain, hematuria,blurred vision, double vision, loss of vision, speech changes, LH, dizziness, syncope, headaches, wheezing, URI, neck pain, weakness, bowel or bladder dysfunction, saddle anesthesia, numbness or tingling in bilateral upper or lower extremities equally, muscle paralysis, weakness in bilateral upper or lower extremities equally or rash. - REPRODUCTIVE Reproductive: REPORTS: : Past Medical History - General Information source: Patient - Social History Smoking Status: Never Smoker Family History: Reviewed & Not Pertinent Patient has suicidal ideation: No Patient has homicidal ideation: No Renal/ Medical History: Reports: Hx Kidney Stones. Denies: Hx Peritoneal Dialysis Musculoskeletal Medical History: Reports Hx Musculoskeletal Trauma Psychiatric Medical History: Reports: Hx Anxiety - Immunizations Immunizations up to date: Yes Hx Diphtheria, Pertussis, Tetanus Vaccination: Yes Vertical Provider Document - CONSTITUTIONAL Agree With Documented VS: Yes Exam Limitations: No Limitations General Appearance: WD/WN Notes: PHYSICAL EXAMINATION:reviewed vital signs by RN GENERAL: Well-appearing, well-nourished and in no acute distress. HEAD: Atraumatic, normocephalic. EYES: Pupils equal round and reactive to light, extraocular movements intact, conjunctiva are normal. ENT: TM intact with bilateral serous effusion, no erythema. Nares boggy bilaterally, oropharynx with erythema without exudates. Moist mucous membranes. NECK: Normal range of motion, supple without lymphadenopathy LUNGS: Breath sounds clear to auscultation bilaterally and equal. No wheezes rales or rhonchi. HEART: Regular rate and rhythm without murmurs ABDOMEN: Soft, nontender, nondistended abdomen. No guarding, no rebound. No masses appreciated. Female : deferred Musculoskeletal: Normal range of motion, no pitting or edema. No cyanosis. NEUROLOGICAL: Cranial nerves grossly intact. Normal speech, normal gait. Normal sensory, motor exams PSYCH: Normal mood, normal affect. SKIN: Warm, Dry, normal turgor, no rashes or lesions noted. - INFECTION CONTROL TRAVEL OUTSIDE OF THE [place] IN LAST 30 DAYS: No Course - Re-evaluation Re-evalutation: 05/12/19 18:54 Low-grade fever, vitals stable no distress. Nurse's notes reviewed.Patient presents with cough, vomiting, diarrhea, and fever at home consistent with a flulike illness although our flu test here is negative. Sensitivity for this years flu assay is apparently 91-92%. Clinical history and exam is not consistent with an acute bacterial meningitis, encephalitis, pneumonia, there is no evidence of a cellulitis on examination. Patient likewise denies any urinary symptoms. Patient does not have any focal abdominal tenderness to suggest an acute biliary pathology, acute appendicitis, acute mesenteric ischemia, bowel obstruction, bowel, or any other life-threatening acute intra-abdominal pathology as the etiology of the fever and additional symptoms today. Labs are otherwise unremarkable. Patient is tolerated oral intake without difficulty. Vitals at time of reassessment are within normal limits. At this time will disc harge with return precautions and follow-up recommendations. Verbal discharge instructions given a the bedside and opportunity for questions given. Medication warnings reviewed. Patient is in agreement with this plan and has verbalized understanding of return precautions and the need for primary care follow-up in the next 24-72 hours. 05/12/19 20:29 - Vital Signs Vital signs: Temp Pulse Resp BP Pulse Ox 100.0 F 106 H 17 124/70 97 05/12/19 17:30 05/12/19 17:30 05/12/19 17:30 05/12/19 17:30 05/12/19 17:30 Discharge - Discharge Clinical Impression: , Flu-like symptoms Condition: Stable Disposition: HOME, SELF-CARE Instructions: Influenza ([facility]) Additional Instructions: You present with flulike symptoms. There is no treatment that is effective for this diagnosis other than supportive care at home. This includes drinking plenty of fluids, using Tylenol or ibuprofen as needed for fever and discomfort. I have prescribed Tamiflu which is the treatment for influenza, take 1 pill twice a day for 5 days, decrease his viral shedding. please follow closely with you primary care physician the next 1-2 days regarding this diagnosis. Return to the emergency department immediately if you began to have persistent vomiting prevents you from being able to keep fluids down for more than 12 hours, you pass out, you began having difficulty breathing, you become confused, or you have any other symptoms that are worrisome to you. Return immediately for any new or worsening symptoms. Follow up with primary care provider, call tomorrow to make followup appointment. Prescriptions: Oseltamivir Phosphate [Tamiflu 75 mg Capsule] 75 mg PO BID #10 capsule Forms: Return to Work Referrals: PARVEEN BUCHANAN PA-C [Primary Care Provider] - Follow up as needed NOLBERTO OREILLY MD [ACTIVE STAFF] - Follow up as needed
[2019-05-12 20:15] LABS: A TYPE INFLUENZA AG NEGATIVE (NEGATIVE); B INFLUENZA AG NEGATIVE (NEGATIVE)
[2019-05-12 20:47] VITALS: BP 121/75
== END 2019-05-12 21:02 | disposition home or self-care (01) ==
LOC: ER 17:15
DX: O26.92 Pregnancy related conditions, unspecified, second trimester (principal); R09.81 Nasal congestion; M79.10 Myalgia, unspecified site; R51 Headache; Z3A.24 24 weeks gestation of pregnancy; Z87.442 Personal history of urinary calculi
CPT/HCPCS: 87804; 99283

== ENCOUNTER 2019-08-02 00:46 | Outpatient (CLI) | payer MEDICAID ==
[2019-08-02 01:27] LABS: APPEARANCE,URINE CLEAR; BILIRUBIN,URINE NEGATIVE (NEGATIVE); COLOR,URINE STRAW; GLUCOSE, URINE NEGATIVE (NEGATIVE); KETONES,URINE NEGATIVE (NEGATIVE); LEUKOCYTE ESTERASE,URINE NEGATIVE (NEGATIVE); NITRITE,URINE NEGATIVE (NEGATIVE); PROTEIN,URINE NEGATIVE (NEGATIVE); URINE SPECIFIC GRAVITY 1.005; UROBILINOGEN,URINE NEGATIVE mg/dL (<2.0)
[2019-08-02 01:52] LABS: URINE AMPHETAMINES SCREEN NEGATIVE; URINE BARBITURATES SCREEN NEGATIVE; URINE BENZODIAZEPINES SCREEN NEGATIVE; URINE COCAINE SCREEN NEGATIVE; URINE MARIJUANA (THC) SCREEN NEGATIVE; URINE METHADONE SCREEN NEGATIVE; URINE PHENCYCLIDINE SCREEN NEGATIVE
== END 2019-08-02 03:16 | disposition home or self-care (01) ==
LOC: LC 00:46
PROVIDERS: ATTEND Obstetrics & Gynecology
PROC: 4A1HXCZ Monitoring of Products of Conception, Cardiac Rate, External Approach (ICD-10-PCS; principal; 2019-08-02)
DX: Z34.83 Encounter for supervision of other normal pregnancy, third trimester (principal); Z3A.35 35 weeks gestation of pregnancy
CPT/HCPCS: 59025; 80307; 81001; 84112

== ENCOUNTER 2019-08-02 12:06 | Outpatient (CLI) | payer MEDICAID ==
--- NOTE | 2019-08-02 12:10 | Non Stress Test Report ---
Non Stress Test Datetime Report Generated by CPN: 08/02/2019 12:09 DEMOGRAPHIC EGA NST: 35.5 INDICATION Indication for Study (NST) Other: LC - false labor, gestational age greater than 32 weeks VITAL SIGNS Temperature - NST: 98.4 Pulse - NST: 67 RESP - NST: 16 NBPSYS NST: 124 NBPDIA NST: 75 URINE RESULTS Urine Protein, NST: Negative Urine Ketones - NST: Negative Urine Glucose - NST: Negative Urine Blood - NST: Positive (Annotations: Data stored by [employer] [facility] on behalf of user) MONITORING Monitor Explained: Monitor Explained; Test Explained; Patient Verbalized Understanding Time on Monitor: 08/02/2019 01:06 Time off Monitor: 08/02/2019 03:06 NST Duration: 60 NST INTERVENTIONS NST Interventions: PO Hydration Physician Notified NST: Dr. Thomas BABY A: [id number] BABY A Movement : Present Contraction Frequency : none FHR Baseline : 145 Accelerations : 15X15 Decelerations : None Variability : Moderate 6-25bpm NST Review: Meets Criteria for Reactive NST NST Review and Verified By : Channing Aguayo, RN NST Results: Reactive NST REPORT Report Trigger: Send Report
[2019-08-02] MEDS ORDERED: OXYCODONE-ACETAMINOPHEN 5-325 MG TABLET PO ONE (12:55)
[2019-08-02] MEDS ORDERED: OXYCODONE-ACETAMINOPHEN 5-325 MG TABLET ONE (12:57)
--- NOTE | 2019-08-02 13:05 | Non Stress Test Report ---
Non Stress Test Datetime Report Generated by CPN: 08/02/2019 13:05 DEMOGRAPHIC EGA NST: 35.5 INDICATION Indication for Study (NST) Other: back pain and ctx MONITORING Monitor Explained: Monitor Explained; Test Explained; Patient Verbalized Understanding Time on Monitor: 08/02/2019 12:23 Time off Monitor: 08/02/2019 13:01 NST Duration: 38 NST INTERVENTIONS NST Interventions: None Physician Notified NST: Dr Mccormack BABY A Movement : Present Contraction Frequency : irregular FHR Baseline : 155 Accelerations : 15X15 Decelerations : None Variability : Moderate 6-25bpm NST Review: Meets Criteria for Reactive NST NST Review and Verified By : Charisse Felix RN NST Results: Reactive NST REPORT Report Trigger: Send Report
[2019-08-02 13:06] LABS: APPEARANCE,URINE CLEAR; BILIRUBIN,URINE NEGATIVE (NEGATIVE); COLOR,URINE STRAW; GLUCOSE, URINE NEGATIVE (NEGATIVE); KETONES,URINE TRACE mg/dL (NEGATIVE); LEUKOCYTE ESTERASE,URINE NEGATIVE (NEGATIVE); NITRITE,URINE NEGATIVE (NEGATIVE); PROTEIN,URINE NEGATIVE (NEGATIVE); URINE SPECIFIC GRAVITY 1.009; UROBILINOGEN,URINE NEGATIVE mg/dL (<2.0)
[2019-08-02 13:18] LABS: URINE AMPHETAMINES SCREEN NEGATIVE; URINE BARBITURATES SCREEN NEGATIVE; URINE BENZODIAZEPINES SCREEN NEGATIVE; URINE COCAINE SCREEN NEGATIVE; URINE MARIJUANA (THC) SCREEN NEGATIVE; URINE METHADONE SCREEN NEGATIVE; URINE PHENCYCLIDINE SCREEN NEGATIVE
== END 2019-08-02 13:20 | disposition home or self-care (01) ==
LOC: LC 12:06
PROVIDERS: ATTEND Obstetrics & Gynecology
PROC: 4A1HXCZ Monitoring of Products of Conception, Cardiac Rate, External Approach (ICD-10-PCS; principal; 2019-08-02)
DX: O47.03 False labor before 37 completed weeks of gestation, third trimester (principal); Z3A.35 35 weeks gestation of pregnancy
CPT/HCPCS: 59025; 80307; 81001

== ENCOUNTER 2019-08-18 10:55 | Outpatient (CLI) | payer MEDICAID | END 2019-08-18 11:40 | disposition home or self-care (01) | LOC: LC 10:55 | PROVIDERS: ATTEND Obstetrics & Gynecology | PROC: 4A1HXCZ Monitoring of Products of Conception, Cardiac Rate, External Approach (ICD-10-PCS; principal; 2019-08-18) | DX: Z34.93 Encounter for supervision of normal pregnancy, unspecified, third trimester (principal) | CPT/HCPCS: 59025 ==

== ENCOUNTER 2019-08-24 03:09 | Inpatient (IN) | payer MEDICAID ==
[2019-08-24 03:45] LABS: APPEARANCE,URINE SLIGHTLY-CLOUDY; BILIRUBIN,URINE NEGATIVE (NEGATIVE); COLOR,URINE STRAW; GLUCOSE, URINE NEGATIVE (NEGATIVE); KETONES,URINE NEGATIVE (NEGATIVE); LEUKOCYTE ESTERASE,URINE NEGATIVE (NEGATIVE); NITRITE,URINE NEGATIVE (NEGATIVE); PROTEIN,URINE NEGATIVE (NEGATIVE); URINE SPECIFIC GRAVITY 1.009; UROBILINOGEN,URINE NEGATIVE mg/dL (<2.0)
[2019-08-24 04:00] LABS: URINE AMPHETAMINES SCREEN NEGATIVE; URINE BARBITURATES SCREEN NEGATIVE; URINE BENZODIAZEPINES SCREEN NEGATIVE; URINE COCAINE SCREEN NEGATIVE; URINE MARIJUANA (THC) SCREEN NEGATIVE; URINE METHADONE SCREEN NEGATIVE; URINE PHENCYCLIDINE SCREEN NEGATIVE
[2019-08-24] MEDS ORDERED: OXYTOCIN 10 UNIT/ML VIAL ONE (05:22)
[2019-08-24] MEDS ORDERED: MISOPROSTOL 0.2 MG TABLET ONE (05:23)
[2019-08-24] MEDS ORDERED: LIDOCAINE 1% INJ-PF (10 MG/ML) 30 ML SDV ONE (05:23)
[2019-08-24] MEDS ORDERED: OXYTOCIN/NORMAL SALINE 20 UNIT/1,000 ML RTUINJ ONE (05:23)
[2019-08-24] MEDS ORDERED: PHENYLEPHRINE HCL INJ/PF 10 MG/1 ML SDV ONE (05:27)
[2019-08-24] MEDS ORDERED: FENTANYL/BUPIVACAINE/NS/PF 300 MCG/150 ML RTUINJ EPI ONE (05:28)
[2019-08-24] MEDS ORDERED: FENTANYL CITRATE INJ/PF 100 MCG/2 ML AMPUL ONE (05:28)
[2019-08-24] MEDS ORDERED: EPHEDRINE SULFATE INJ 50 MG/1 ML AMPULE ONE (05:28)
[2019-08-24] MEDS ORDERED: BUPIVACAINE HCL 0.25 % INJ/PF (2.5 MG/1 ML) 30 ML VIAL ONE (05:28)
[2019-08-24] MEDS: RINGERS SOLUTION,LACTATED 1,000 ML IV PRN (05:38)
[2019-08-24 06:18] LABS: HEMOGLOBIN 10.4 g/dL (12.0-15.5); MEAN CORPUSCULAR HEMOGLOBIN 29.2 pg (27.0-33.4); MEAN CORPUSCULAR HGB CONC 34.6 g/dL (32.0-36.0); MEAN CORPUSCULAR VOLUME 84 fl (80-97); PLATELET COUNT 157 10^3/uL (150-450); RED BLOOD COUNT 3.56 10^6/uL (3.72-5.28); WHITE BLOOD COUNT 10.3 10^3/uL (4.0-10.5)
[2019-08-24 06:54] LABS: ABSOLUTE LYMPHOCYTES# (MANUAL) 1.6 10^3/uL (0.5-4.7); ABSOLUTE MONOCYTES # (MANUAL) 1.3 10^3/uL (0.1-1.4); BAND NEUTROPHILS % (MANUAL) 1 % (3-5); BASOPHILS % (MANUAL) 0 % (0-2); EOSINOPHILS % (MANUAL) 1 % (0-6); LYMPHOCYTES % (MANUAL) 16 % (13-45); MONOCYTES % (MANUAL) 13 % (3-13); SEGMENTED NEUTROPHILS % (MAN) 69 % (42-78); TOTAL CELLS COUNTED 100
[2019-08-24 06:57] LABS: ANISOCYTOSIS 2+; POLYCHROMASIA SLIGHT; TEAR DROP CELLS SLIGHT
[2019-08-24 06:58] LABS: PLATELET COMMENT ADEQUATE
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
[2019-08-24] MEDS ORDERED: MISOPROSTOL 0.2 MG TABLET PR ONE (07:42)
[2019-08-24] MEDS ORDERED: MEASLES,MUMPS&RUBELLA VACC/PF 0.5 ML VIAL SUBCUT PRN (07:42)
[2019-08-24] MEDS ORDERED: PROMETHAZINE HCL INJ 25 MG/1 ML VIAL IV PRN (07:42)
[2019-08-24] MEDS ORDERED: ZOLPIDEM TARTRATE 5 MG TABLET PO PRN (07:42)
[2019-08-24] MEDS ORDERED: GLYCERIN/WITCH HAZEL LEAF 1 EACH MED..WIPE TP PRN (07:42)
[2019-08-24] MEDS ORDERED: ACETAMINOPHEN 325 MG TABLET PO PRN (07:42)
[2019-08-24] MEDS ORDERED: ACETAMINOPHEN WITH CODEINE #3 TABLET PO PRN ×2 (07:42)
[2019-08-24] MEDS ORDERED: DIBUCAINE 1% OINTMENT 28 GM TP PRN (07:42)
[2019-08-24] MEDS ORDERED: BENZOCAINE/MENTHOL AEROSOL SPRAY 56 ML TOP PRN (07:42)
[2019-08-24] MEDS ORDERED: DIPH/PERTUSS(ACELL)/TETANUS VAC/PF 0.5 ML SYR (>=10YO) IM PRN (07:42)
[2019-08-24] MEDS ORDERED: OXYTOCIN/NORMAL SALINE 20 UNIT/1,000 ML RTUINJ IV PRN (07:42)
[2019-08-24] MEDS ORDERED: PROMETHAZINE HCL 25 MG SUPP.RECT PR PRN (07:42)
[2019-08-24] MEDS ORDERED: DIPHENHYDRAMINE HCL 25 MG CAPSULE PO PRN (07:42)
[2019-08-24] MEDS ORDERED: PSEUDOEPHEDRINE HCL 30 MG TABLET PO PRN (07:42)
[2019-08-24] MEDS ORDERED: MAGNESIUM HYDROXIDE SUSP 30 ML UDCUP PO PRN (07:42)
[2019-08-24] MEDS ORDERED: NA PHOS,M-B/NA PHOS,DI-BA (ADULT) 133 ML ENEMA PR PRN (07:42)
[2019-08-24] MEDS ORDERED: PROMETHAZINE HCL 25 MG TABLET PO PRN (07:42)
[2019-08-24] MEDS: FERROUS SULFATE 325 MG TABLET PO SCH ×2 (10:36→17:39)
[2019-08-24] MEDS: SENNOSIDES/DOCUSATE 8.6-50 MG 1 EACH TABLET PO SCH (10:36)
[2019-08-24] MEDS: PRENATAL VITAMIN W DHA CAPSULE PO SCH (10:36)
[2019-08-24] MEDS: SERTRALINE HCL 50 MG TABLET PO SCH (10:36)
[2019-08-24] MEDS: DOCUSATE SODIUM 100 MG CAPSULE PO SCH ×2 (10:36→17:39)
[2019-08-24] MEDS: FAMOTIDINE 20 MG TABLET PO SCH ×2 (10:50→22:09)
[2019-08-24] MEDS: IBUPROFEN 800 MG TABLET PO SCH ×2 (14:07→22:01)
[2019-08-24] MEDS ORDERED: INFLUENZA QUAD (6MOS+) 2019-20 VAC 0.5 ML SYR IM ONE (19:22)
[2019-08-24] MEDS: OXYCODONE-ACETAMINOPHEN 5-325 MG TABLET PO PRN (20:50)
[2019-08-25] MEDS: OXYCODONE-ACETAMINOPHEN 5-325 MG TABLET PO PRN ×3 (03:11→21:00)
[2019-08-25] MEDS: IBUPROFEN 800 MG TABLET PO SCH ×3 (05:11→21:02)
[2019-08-25 07:06] LABS: HEMATOCRIT 27.7 % (36.0-47.0); HEMOGLOBIN 9.3 g/dL (12.0-15.5); MEAN CORPUSCULAR HEMOGLOBIN 28.4 pg (27.0-33.4); MEAN CORPUSCULAR HGB CONC 33.4 g/dL (32.0-36.0); MEAN CORPUSCULAR VOLUME 85 fl (80-97); PLATELET COUNT 118 10^3/uL (150-450); RED BLOOD COUNT 3.26 10^6/uL (3.72-5.28); WHITE BLOOD COUNT 8.9 10^3/uL (4.0-10.5)
[2019-08-25] MEDS: FERROUS SULFATE 325 MG TABLET PO SCH ×2 (10:23→17:32)
[2019-08-25] MEDS: SENNOSIDES/DOCUSATE 8.6-50 MG 1 EACH TABLET PO SCH (10:23)
[2019-08-25] MEDS: DOCUSATE SODIUM 100 MG CAPSULE PO SCH ×2 (10:23→17:32)
[2019-08-25] MEDS: SERTRALINE HCL 50 MG TABLET PO SCH (10:23)
[2019-08-25] MEDS: PRENATAL VITAMIN W DHA CAPSULE PO SCH (10:23)
[2019-08-25] MEDS: FAMOTIDINE 20 MG TABLET PO SCH ×2 (10:25→21:03)
--- NOTE | 2019-08-25 13:18 | PDOC PROGRESS REPORT ---
Subjective-OB Progress Note for:: 08/25/19 - PP Day #1, pt c/o headache, which started after delivery. States is does worsen when she sits up, but remains dull and present w/ lying flat. A+, Rubella Immune, bottlefeeding. She would like to go home later on today if possible Physical Exam (OB) Vital Signs: Temp Pulse Resp BP Pulse Ox 97.5 F 58 L 16 108/53 L 98 08/25/19 11:28 08/25/19 11:28 08/25/19 11:28 08/25/19 11:28 08/25/19 11:28 Intake & Output 08/24/19 08/25/19 08/26/19 06:59 06:59 06:59 Intake Total 20 Balance 20 Weight 83.8 kg - General General Appearance: Appears well, Alert - PIH/Pre-Eclampsia DTR's: 1 + Clonus: Negative Headache: Absent Epigastric Pain: No Visual Changes: No - Lochia Lochia Amount: Small 10-25 ml Lochia Color: Rubra/Red - Abdomen Description: Soft, Round Hernia Present: No Fundal Description: Firm, Midline Fundal Height: u/u - u/2 - Respiratory Respiratory Status: No respiratory distress - Abdominal Inspection: Normal Distension: No distension - Genitourinary Genitourinary Note: voiding - Extremities Upper extremity: Normal inspection Lower extremities: Normal inspection - Neurological Cognition: Normal Orientation: AAOx4 - Psychological Associated symptoms: Normal affect, Normal mood - Skin Skin Temperature: Warm Skin Moisture: Dry Objective-Diagnostic Laboratory: 08/25/19 06:42 08/25/19 06:42 WBC 8.9 RBC 3.26 L Hgb 9.3 L Hct 27.7 L MCV 85 MCH 28.4 MCHC 33.4 RDW 20.0 H Plt Count 118 L Assessment and Plan(PN) - Assessment and Plan (1) Active labor at term Is this a current diagnosis for this admission?: Yes (2) Anxiety Is this a current diagnosis for this admission?: Yes (3) Meconium in amniotic fluid Is this a current diagnosis for this admission?: Yes (4) Vaginal delivery Is this a current diagnosis for this admission?: Yes Plan:: Consult w/ anesthesia for possible spinal headache. Routine PP orders, may discharge to home later on today if possible - Time Spent with Patient Time with patient: Less than 15 minutes Medications reviewed and adjusted accordingly: Yes - Disposition Anticipated Discharge: Home Within: within 24 hours
[2019-08-25] MEDS ORDERED: BUTALB/ACETAMINOPHEN/CAFFEINE 1 TAB EACH PO ONE (16:00)
[2019-08-25] MEDS ORDERED: KETOROLAC TROMETHAMINE INJ/PF 30 MG/1 ML SDV IV ONE (18:00)
[2019-08-26] MEDS: OXYCODONE-ACETAMINOPHEN 5-325 MG TABLET PO PRN ×3 (03:01→22:06)
[2019-08-26] MEDS: IBUPROFEN 800 MG TABLET PO SCH ×3 (05:29→22:05)
[2019-08-26] MEDS: PRENATAL VITAMIN W DHA CAPSULE PO SCH (10:03)
[2019-08-26] MEDS: FERROUS SULFATE 325 MG TABLET PO SCH ×2 (10:03→17:18)
[2019-08-26] MEDS: FAMOTIDINE 20 MG TABLET PO SCH ×2 (10:03→22:05)
[2019-08-26] MEDS: DOCUSATE SODIUM 100 MG CAPSULE PO SCH ×2 (10:03→17:18)
[2019-08-26] MEDS: SERTRALINE HCL 50 MG TABLET PO SCH (10:04)
[2019-08-26] MEDS ORDERED: FERRIC CARBOXYMALTOSE INJ 750 MG/15 ML VIAL IV ONE (11:10)
[2019-08-26 11:32] LABS: ABSOLUTE EOSINOPHILS # (AUTO) 0.1 10^3/uL (0.0-0.6); ABSOLUTE LYMPHOCYTES (AUTO) 1.2 10^3/uL (0.5-4.7); ABSOLUTE MONOCYTES (AUTO) 0.5 10^3/uL (0.1-1.4); ABSOLUTE NEUT (AUTO) 5.3 10^3/uL (1.7-8.2); BASOPHILS % (AUTO) 0.4 % (0-2); HEMATOCRIT 28.8 % (36.0-47.0); HEMOGLOBIN 9.5 g/dL (12.0-15.5); LYMPHOCYTES % (AUTO) 16.5 % (13-45); MEAN CORPUSCULAR HEMOGLOBIN 28.6 pg (27.0-33.4); MEAN CORPUSCULAR HGB CONC 33.1 g/dL (32.0-36.0); MEAN CORPUSCULAR VOLUME 86 fl (80-97); MONOCYTES % (AUTO) 7.1 % (3-13); PLATELET COUNT 127 10^3/uL (150-450); RED BLOOD COUNT 3.33 10^6/uL (3.72-5.28); RED CELL DISTRIBUTION WIDTH 21.2 % (11.5-14.0); TOTAL CELLS COUNTED % (AUTO) 100 %
[2019-08-26] MEDS: SENNOSIDES/DOCUSATE 8.6-50 MG 1 EACH TABLET PO SCH (11:32)
[2019-08-26] MEDS: RINGERS SOLUTION,LACTATED 1,000 ML IV PRN (11:33)
--- NOTE | 2019-08-26 11:52 | PDOC PROGRESS REPORT ---
Subjective-OB Progress Note for:: 08/26/19 Subjective: 28yo G4 now P3 s/p ppd 2. Reports headache continues. Describes it as a frontal headache, has not gone away since delivery but it does improve some with medication. Spinal headache ruled out by anesthesia yesterday. Pt reports nothing makes it worse, it is constant and sharp. Denies any concerns at this time. Baby not being discharge today but in room with mother at this time. Physical Exam (OB) Vital Signs: Temp Pulse Resp BP Pulse Ox 97.3 F 51 L 15 113/79 100 08/26/19 07:51 08/26/19 07:51 08/26/19 07:51 08/26/19 07:51 08/26/19 07:51 Intake & Output 08/25/19 08/26/19 08/27/19 06:59 06:59 06:59 Intake Total 20 400 440 Balance 20 400 440 - General General Appearance: Appears well In distress: None - PIH/Pre-Eclampsia DTR's: 2 + Clonus: Negative Headache: Present Epigastric Pain: No Visual Changes: Yes - Episiotomy/Laceration Site Condition: N/A - Lochia Lochia Amount: Scant < 10 ml Lochia Color: Rubra/Red - Abdomen Description: Soft, Round Hernia Present: No Fundal Description: Midline Fundal Height: u/u - u/2 - Respiratory Respiratory Status: No respiratory distress - Extremities Upper extremity: Normal inspection Lower extremities: Normal inspection - Neurological Cognition: Normal Orientation: AAOx4 - Psychological Associated symptoms: Normal affect, Normal mood Objective-Diagnostic Laboratory: 08/26/19 11:12 08/26/19 11:12 WBC 7.0 RBC 3.33 L Hgb 9.5 L Hct 28.8 L MCV 86 MCH 28.6 MCHC 33.1 RDW 21.2 H Plt Count 127 L Seg Neutrophils % 75.0 Assessment and Plan(PN) - Assessment and Plan (1) Anemia complicating , third trimester Is this a current diagnosis for this admission?: Yes Plan: will give one dose of IV iron at this time. Continue FeSO4 BID (2) Thrombocytopenia affecting Is this a current diagnosis for this admission?: Yes Plan: CBC repeated and PIH labs done, will discuss with Dr. Thomas once resulted (3) headache Is this a current diagnosis for this admission?: Yes Plan: PIH labs drawn, will discuss with Dr. Thomas for plan of care at this time. (4) Active labor at term Is this a current diagnosis for this admission?: Yes Plan: delivered (5) Anxiety Is this a current diagnosis for this admission?: Yes Plan: currently seeing counseling at [facility] Continue to monitor for s/s of pp depression (6) Meconium in amniotic fluid Is this a current diagnosis for this admission?: Yes (7) Vaginal delivery Is this a current diagnosis for this admission?: Yes Plan: delivered - Time Spent with Patient Time with patient: 15-25 minutes Medications reviewed and adjusted accordingly: Yes - Disposition Anticipated Discharge: Home Within: within 24 hours
[2019-08-26 11:56] LABS: ALBUMIN 2.6 g/dL (3.5-5.0); ALKALINE PHOSPHATASE 125 U/L (38-126); ASPARTATE AMINO TRANSFERASE 20 U/L (14-36); BILIRUBIN,TOTAL 0.1 mg/dL (0.2-1.3); BLOOD UREA NITROGEN 11 mg/dL (7-20); CHLORIDE 106 mmol/L (98-107); GLUCOSE 75 mg/dL (75-110); POTASSIUM 4.6 mmol/L (3.6-5.0); TOTAL PROTEIN 5.2 g/dL (6.3-8.2); URIC ACID 5.8 mg/dL (2.5-6.2)
[2019-08-26 12:01] LABS: CARBON DIOXIDE 27 mmol/L (22-30)
[2019-08-26 12:05] LABS: ANION GAP 2 (5-19)
[2019-08-26] MEDS ORDERED: FERRIC CARBOXYMALTOSE 750 MG in NORMAL SALINE 250 ML IV ONE (12:30)
[2019-08-26] MEDS ORDERED: PREDNISONE 10 MG TABLET PO ONE (13:00)
[2019-08-26] MEDS ORDERED: METOCLOPRAMIDE HCL 10 MG TABLET PO ONE (13:00)
[2019-08-26] MEDS ORDERED: DIPHENHYDRAMINE HCL 50 MG CAPSULE PO ONE (14:00)
[2019-08-26] MEDS: LEVOTHYROXINE SODIUM 0.1 MG TABLET PO SCH (17:18)
[2019-08-27] MEDS: IBUPROFEN 800 MG TABLET PO SCH (05:24)
[2019-08-27] MEDS: DOCUSATE SODIUM 100 MG CAPSULE PO SCH (09:23)
[2019-08-27] MEDS: FAMOTIDINE 20 MG TABLET PO SCH (09:23)
[2019-08-27] MEDS: FERROUS SULFATE 325 MG TABLET PO SCH (09:24)
[2019-08-27] MEDS: LEVOTHYROXINE SODIUM 0.1 MG TABLET PO SCH (09:24)
[2019-08-27] MEDS: PRENATAL VITAMIN W DHA CAPSULE PO SCH (09:24)
[2019-08-27] MEDS: SERTRALINE HCL 50 MG TABLET PO SCH (09:24)
[2019-08-27] MEDS: SENNOSIDES/DOCUSATE 8.6-50 MG 1 EACH TABLET PO SCH (09:24)
[2019-08-27] MEDS: OXYCODONE-ACETAMINOPHEN 5-325 MG TABLET PO PRN (09:24)
--- NOTE | 2019-08-27 10:20 | PDOC DISCHARGE SUMMARY ---
Impression - Admit/DC Date/PCP Admission Date/Primary Care Provider: 08/24/19 05:24 AARON TREADWELL MD Discharge Date: 08/27/19 - PP Day #3, doing better, states headache has improved after IV iron yesterday. A+ Rubella Immune, bottle feeding - Discharge Diagnosis (1) Active labor at term Is this a current diagnosis for this admission?: Yes (2) Anxiety Is this a current diagnosis for this admission?: Yes (3) Meconium in amniotic fluid Is this a current diagnosis for this admission?: Yes (4) Vaginal delivery Is this a current diagnosis for this admission?: Yes - Additional Information Resuscitation Status: Full Code Discharge Diet: As Tolerated, Regular Discharge Activity: Activity As Tolerated, No Lifting Over 10 Pounds, Pelvic Rest Referrals: AARON TREADWELL MD [Primary Care Provider] - Prescriptions: Ibuprofen [Motrin 800 mg Tablet] 800 mg PO Q8 #60 tablet Home Medications: Vits96/Iron Fum/Folic [ Tablet] 1 tab PO DAILY 08/02/19 Sertraline HCl 100 mg PO DAILY 08/02/19 Ferrous Gluconate [Iron] 325 mg PO DAILY 08/18/19 Ibuprofen [Motrin 800 mg Tablet] 800 mg PO Q8 #60 tablet 08/27/19 Levothyroxine Sodium [Synthroid 0.1 mg Tablet] 0.1 mg PO DAILY tablet 08/27/19 HPI Reason(s) for Admission: Onset of Labor Procedures: Ultrasound Intrapartum Procedure(s): Spontaneous Vaginal Delivery Results Laboratory Results: WBC 7.0 10^3/uL (4.0-10.5) 08/26/19 11:12 RBC 3.33 10^6/uL (3.72-5.28) L 08/26/19 11:12 Hgb 9.5 g/dL (12.0-15.5) L 08/26/19 11:12 Hct 28.8 % (36.0-47.0) L 08/26/19 11:12 MCV 86 fl (80-97) 08/26/19 11:12 MCH 28.6 pg (27.0-33.4) 08/26/19 11:12 MCHC 33.1 g/dL (32.0-36.0) 08/26/19 11:12 RDW 21.2 % (11.5-14.0) H 08/26/19 11:12 Plt Count 127 10^3/uL (150-450) L 08/26/19 11:12 Lymph % (Auto) 16.5 % (13-45) 08/26/19 11:12 [place] % (Auto) 7.1 % (3-13) 08/26/19 11:12 Eos % (Auto) 1.0 % (0-6) 08/26/19 11:12 Baso % (Auto) 0.4 % (0-2) 08/26/19 11:12 Absolute Neuts (auto) 5.3 10^3/uL (1.7-8.2) 08/26/19 11:12 Absolute Lymphs (auto) 1.2 10^3/uL (0.5-4.7) 08/26/19 11:12 Absolute Monos (auto) 0.5 10^3/uL (0.1-1.4) 08/26/19 11:12 Absolute Eos (auto) 0.1 10^3/uL (0.0-0.6) 08/26/19 11:12 Absolute Basos (auto) 0.0 10^3/uL (0.0-0.2) 08/26/19 11:12 Total Counted 100 08/24/19 05:55 Seg Neutrophils % 75.0 % (42-78) 08/26/19 11:12 Seg Neuts % (Manual) 69 % (42-78) 08/24/19 05:55 Band Neutrophils % 1 % (3-5) L 08/24/19 05:55 Lymphocytes % (Manual) 16 % (13-45) 08/24/19 05:55 Monocytes % (Manual) 13 % (3-13) 08/24/19 05:55 Eosinophils % (Manual) 1 % (0-6) 08/24/19 05:55 Basophils % (Manual) 0 % (0-2) 08/24/19 05:55 Abs Neuts (Manual) 7.2 10^3/uL (1.7-8.2) 08/24/19 05:55 Abs Lymphs (Manual) 1.6 10^3/uL (0.5-4.7) 08/24/19 05:55 Abs Monocytes (Manual) 1.3 10^3/uL (0.1-1.4) 08/24/19 05:55 Absolute Eos (Manual) 0.1 10^3/uL (0.0-0.6) 08/24/19 05:55 Abs Basophils (Manual) 0.0 10^3/uL (0.0-0.2) 08/24/19 05:55 Platelet Comment ADEQUATE 08/24/19 05:55 Polychromasia SLIGHT 08/24/19 05:55 Anisocytosis 2+ 08/24/19 05:55 Tear Drop Cells SLIGHT 08/24/19 05:55 Sodium 134.6 mmol/L (137-145) L 08/26/19 11:12 Potassium 4.6 mmol/L (3.6-5.0) 08/26/19 11:12 Chloride 106 mmol/L (98-107) 08/26/19 11:12 Carbon Dioxide 27 mmol/L (22-30) 08/26/19 11:12 Anion Gap 2 (5-19) L 08/26/19 11:12 BUN 11 mg/dL (7-20) 08/26/19 11:12 Creatinine 0.66 mg/dL (0.52-1.25) 08/26/19 11:12 Est GFR ( Amer) > 60 (>60) 08/26/19 11:12 Est GFR (MDRD) Non-Af > 60 (>60) 08/26/19 11:12 Glucose 75 mg/dL (75-110) 08/26/19 11:12 POC Glucose 90 mg/dL (70-110) 08/26/19 13:27 Uric Acid 5.8 mg/dL (2.5-6.2) 08/26/19 11:12 Calcium 10.0 mg/dL (8.4-10.2) 08/26/19 11:12 Total Bilirubin 0.1 mg/dL (0.2-1.3) L 08/26/19 11:12 Direct Bilirubin 0.0 mg/dL (0.0-0.4) 08/26/19 11:12 Neonat Total Bilirubin Not Reportable 08/26/19 11:12 Neonat Direct Bilirubin Not Reportable 08/26/19 11:12 Neonat Indirect Bili Not Reportable 04/01/20 11:12 AST 20 U/L (14-36) 08/26/19 11:12 ALT 10 U/L (<35) 08/26/19 11:12 Alkaline Phosphatase 125 U/L (38-126) 08/26/19 11:12 Lactate Dehydrogenase 134 U/L (120-246) 08/26/19 11:12 Total Protein 5.2 g/dL (6.3-8.2) L 08/26/19 11:12 Albumin 2.6 g/dL (3.5-5.0) L 08/26/19 11:12 TSH 11.20 uIU/mL (0.47-4.68) H 08/26/19 11:12 Urine Color STRAW 08/24/19 03:20 Urine Appearance SLIGHTLY-CLOUDY 08/24/19 03:20 Urine pH 7.0 (5.0-9.0) 08/24/19 03:20 Ur Specific [place] 1.009 08/24/19 03:20 Urine Protein NEGATIVE mg/dL (NEGATIVE) 08/24/19 03:20 Urine Glucose (UA) NEGATIVE mg/dL (NEGATIVE) 08/24/19 03:20 Urine Ketones NEGATIVE mg/dL (NEGATIVE) 08/24/19 03:20 Urine Blood NEGATIVE (NEGATIVE) 08/24/19 03:20 Urine Nitrite NEGATIVE (NEGATIVE) 08/24/19 03:20 Urine Bilirubin NEGATIVE (NEGATIVE) 08/24/19 03:20 Urine Urobilinogen NEGATIVE mg/dL (<2.0) 08/24/19 03:20 Ur Leukocyte Esterase NEGATIVE (NEGATIVE) 08/24/19 03:20 Urine Ascorbic Acid NEGATIVE (NEGATIVE) 08/24/19 03:20 Urine Opiates Screen NEGATIVE 08/24/19 03:20 Urine Methadone Screen NEGATIVE 08/24/19 03:20 Ur Barbiturates Screen NEGATIVE 08/24/19 03:20 Ur Phencyclidine Scrn NEGATIVE 08/24/19 03:20 Ur Amphetamines Screen NEGATIVE 08/24/19 03:20 U Benzodiazepines Scrn NEGATIVE 08/24/19 03:20 Urine Cocaine Screen NEGATIVE 08/24/19 03:20 U Marijuana (THC) Screen NEGATIVE 08/24/19 03:20 RPR NONREACTIVE (NONREACTIVE) 08/24/19 05:55 Blood Type A POSITIVE 08/24/19 05:55 Antibody Screen NEGATIVE 08/24/19 05:55 Plan Plan of Treatment: d/c to home, f/up with [facility] in 4 wks, check TSH at PP visit Time Spent: Less than 30 Minutes
[2019-08-27 10:35] VITALS: BP 121/61
--- NOTE | 2019-08-28 11:38 | Delivery Summary ---
Del Sum A-C Datetime Report Generated by CPN: 08/28/2019 11:38 DELIVERY PERSONNEL DELIVERY PERSONNEL: [id number] Delivery Doctor:: Galina Hobbs MD Anesthesiologist:: Mita Mosley MD Labor and Delivery Nurse:: Summer Joseph RNflight agent Nurse:: Doyle Valle RN Carpet Sewer/SENIOR LABEL SPECIALIST: Madelyn Victoria CST Carpet Sewer/SENIOR LABEL SPECIALIST: ZToler,[employer] MATCHER MATERNAL INFORMATION Delivery Anesthesia: Epidural Medications After Delivery: Pitocin Drip 20 Units/1000ml NSS; Cytotec 1000mcg Per Rectum/Vagina Estimated Blood Loss (ml): 50 Maternal Complications: None Provider Comments: VMI delivered in PINA presenation with tight nuchal cord and compound left hand. Shoulders and body delivered without difficulty. Cord doubly clamped and cut and to maternal abdomen. Placenta delivered intact spontaneously. FF at U. No perineal lacerations. Mother and baby stable upon provider leaving the room. Cytotec 1000mcg given NE due to patient had post hemorrhage with prior baby. LABOR SUMMARY EDC: 09/01/2019 00:00 No. Babies in Womb: 1 Labor Anesthesia: Epidural LABOR INFORMATION Reason for Induction: Not Applicable Complete Dilatation: 08/24/2019 07:20 Oxytocin: N/A Group B Beta Strep: negative Steroids Given: None Reason Steroids Not Administered: Not Applicable MEMBRANES Membranes Rupture Method: Spontaneous Rupture of Membranes: 08/24/2019 06:13 Length of Rupture (hr): 1.30 Amniotic Fluid Color: Light Meconium Amniotic Fluid Amount: Small Amniotic Fluid Odor: Normal STAGES OF LABOR Stage 2 hr: 0 Stage 2 min: 11 Stage 3 hr: 0 Stage 3 min: 3 VAGINAL DELIVERY Episiotomy: None Laceration #1: None Laceration Extension #1: N/A Laceration Repair: Not Applicable Sponge Count Correct: Yes Sharps Count Correct: Yes BABY A INFORMATION Delivery Date/Time: 08/24/2019 07:31 Method of Delivery: Vaginal Nurse Controlled Delivery: No Born in Route : No : N/A Forceps: N/A Vacuum Extraction: N/A Shoulder Dystocia : No PRESENTATION/POSITION BABY A Presentation: Cephalic Presentation: Cephalic Presentation: Cephalic Presentation: Cephalic Presentation: Cephalic Presentation: Cephalic Cephalic Presentation: Vertex Vertex Position: Left Occipital Anterior Breech Presentation: N/A PLACENTA INFORMATION BABY A Placenta Delivery Time : 08/24/2019 07:34 Placenta Method of Delivery: Spontaneous Placenta Status: Delivered SCORES BABY A Heart Rate 1 min: >100 bpm Resp Effort 1 min: Good Cry Reflex Irritability 1 min: Cough or Sneeze or Pulls Away Muscle Tone 1 min: Active Motion Color 1 min: Blue/Pale SCORE 1 MIN: 8 Heart Rate 5 min: >100 bpm Resp Effort 5 min: Good Cry Reflex Irritability 5 min: Cough or Sneeze or Pulls Away Muscle Tone 5 min: Active Motion Color 5 min: Body Dun[place], Extremities Blue SCORE 5 MIN: 9 INFANT INFORMATION BABY A Gestational Age at Delivery: 38.0 Gestational Status: Early Term- 37- 38.6 Weeks Infant Outcome : Liveborn Condition : Stable Sex: Male IDENTIFICATION BABY A Infant Verification Date/Time: 08/24/2019 09:11 ID Band Number: [id number] Mother's Name Verified: Yes RN Verifying Infant: Kirk Ndiaye RN WEIGHT/LENGTH BABY A Infant Birthweight (gm): 3380 Weight (lb): 7 Weight (oz): 7 Length (in): 19.50 Length (cm): 49.53 CORD INFORMATION BABY A No. Cord Vessels: 3 Nuchal Cord : Around Neck x1, Loose Cord Blood Taken: Yes-For Storage (Mom's Blood type +) Infant Suction: None; Mouth ASSESSMENT BABY A Infant Complications: Meconium Infant Respirations: Appears Normal Transferred To: Remains with Mother SIGNATURES Signature: with User ID: [email or web address]
== END 2019-08-27 12:14 | disposition home or self-care (01) | DRG 806 ==
LOC: LC 03:09 → LR 05:24 → 2S 09:45
PROVIDERS: ADMIT Student in an Organized Health Care Education/Training Program; ATTEND Student in an Organized Health Care Education/Training Program
PROC: 10E0XZZ Delivery of Products of Conception, External Approach (ICD-10-PCS; principal; 2019-08-24)
DX: O99.344 Other mental disorders complicating childbirth (principal); K50.90 Crohn's disease, unspecified, without complications; Z37.0 Single live birth; O99.12 Other diseases of the blood and blood-forming organs and certain disorders involving the immune mechanism complicating childbirth; F41.9 Anxiety disorder, unspecified; O99.284 Endocrine, nutritional and metabolic diseases complicating childbirth; O32.6XX0 Maternal care for compound presentation, not applicable or unspecified; O69.1XX0 Labor and delivery complicated by cord around neck, with compression, not applicable or unspecified; E03.9 Hypothyroidism, unspecified; O99.62 Diseases of the digestive system complicating childbirth; O77.0 Labor and delivery complicated by meconium in amniotic fluid; D69.6 Thrombocytopenia, unspecified; O99.89 Other specified diseases and conditions complicating pregnancy, childbirth and the puerperium; R51 Headache; Z91.041 Radiographic dye allergy status; Z3A.38 38 weeks gestation of pregnancy; Z79.899 Other long term (current) drug therapy
CPT/HCPCS: 36415; 80053; 80307; 81005; 82962; 83615; 84443; 84550; 85025; 85027; 86592; 86850; 86900; 86901; J1439; J1885; J2370; J2590; J3010; J3490; J7050; J7120; J7512